=== PATIENT | male | born 1945 | race Caucasian/White ===

== ENCOUNTER 2019-04-28 05:55 | Inpatient (IN) | payer MEDICARE, MEDICAID ==
[~2019-04-28] VITALS: Ht 160 cm; Wt 64.7 kg
--- NOTE | 2019-04-28 05:57 | NUR ---
PT BIB [facility] WITH C/O SOB. ACCORDING TO EMS, PT WAS SATTING AT 79% O2 SAT ON 15L NONREBREATHER AT [facility]. PATIENT GIVEN ALBUTEROL TREATMENT DURING TRANSFER. AAOX4. DIMINSHED BREATHING BILATERALLY. RETRACTIONS UPON BREATHING. CONNECTED TO MONITOR. RT CALLED.
--- NOTE | 2019-04-28 06:02 | NUR ---
LUE AV SHUNT NOTED.
[2019-04-28] MEDS ORDERED: AMLO2.5T4 GT (06:04)
[2019-04-28] MEDS ORDERED: ASCO500T9 PO (06:06)
[2019-04-28] MEDS ORDERED: ATOR20TA GT (06:06)
[2019-04-28] MEDS ORDERED: ARGI1POW13 PO (06:06)
[2019-04-28] MEDS ORDERED: CYCL5TAB GT (06:07)
[2019-04-28] MEDS ORDERED: CARV12.52 GT (06:07)
[2019-04-28] MEDS ORDERED: BISA-79 GT (06:07)
[2019-04-28] MEDS ORDERED: DULO60CA45 GT (06:08)
[2019-04-28] MEDS ORDERED: FURO40TA5 GT (06:08)
[2019-04-28] MEDS ORDERED: IPRA0.2S49 NEB (06:09)
[2019-04-28] MEDS ORDERED: MAGN400T8 PO (06:11)
[2019-04-28] MEDS ORDERED: POLY17PO4 PO (06:11)
[2019-04-28] MEDS ORDERED: PRED5TAB48 PO (06:12)
[2019-04-28] MEDS ORDERED: PREG100C GT (06:13)
--- NOTE | 2019-04-28 06:13 | NUR ---
IS AT BEDSIDE
[2019-04-28] MEDS ORDERED: MIRT15TA PO (06:15)
[2019-04-28] MEDS ORDERED: TAMS-12 GT (06:15)
[2019-04-28] MEDS ORDERED: SPIR25TA6 GT (06:15)
[2019-04-28] MEDS ORDERED: ACET325C7 GT (06:16)
[2019-04-28] MEDS ORDERED: ACET1TAB12 PO (06:16)
[2019-04-28 06:33] LABS: CALCIUM, SERUM 9.6 mg/dL (8.5-10.1); CARBON DIOXIDE 30 mmol/L (21-32); CHLORIDE 99 mmol/L (98-107); CREATININE 2.2 mg/dL (0.6-1.3); GLUCOSE 142 mg/dL (74-106); POTASSIUM 4.8 mmol/L (3.5-5.1); SODIUM SERUM 135 mmol/L (136-145)
[2019-04-28 06:41] LABS: BASOPHILS # (AUTO) 0.1 /CMM (0.0-0.2); BASOPHILS % (AUTO) 0.7 % (0.0-2.0); EOSINOPHILS % (AUTO) 2.9 % (0.0-6.0); HEMATOCRIT 30 % (39-51); HEMOGLOBIN 9.6 g/dL (13.5-17.5); LYMPHOCYTES # (AUTO) 1.1 /CMM (0.8-4.8); LYMPHOCYTES % (AUTO) 7.5 % (20.0-44.0); MEAN CORPUSCULAR HGB CONC 32 g/dl (31.0-36.0); MEAN CORPUSCULAR VOLUME 82 fL (80-96); MONOCYTES # (AUTO) 1.3 /CMM (0.1-1.30); MONOCYTES % (AUTO) 8.5 % (2.0-12.0); NEUTROPHILS # (AUTO) 11.9 /CMM (1.8-8.9); NEUTROPHILS % (AUTO) 80.4 % (43.0-81.0); PLATELET COUNT (AUTO) 237 /CMM (150-450); RED BLOOD CELL COUNT(AUTO) 3.66 MIL/uL (4.5-6.0); WHITE BLOOD COUNT (AUTO) 14.8 K/uL (4.3-11.0)
[2019-04-28 06:44] LABS: UREA NITROGEN, BLOOD 89 mg/dL (7-18)
[2019-04-28 06:47] LABS: B-TYPE NATRIURETIC PEPTIDE 14597 PG/ML (0-125)
--- NOTE | 2019-04-28 08:38 | NUR ---
CALLED PINK[facility] ITS ARMIDA
--- NOTE | 2019-04-28 10:07 | NUR ---
ROOM GIVEN [phone]
--- NOTE | 2019-04-28 10:48 | NUR ---
wheeled patient via gurney accompanied by Charge nurse in no distress, Farhad RN at bedside to assume care.
--- NOTE | 2019-04-28 10:50 | NUR ---
DIATHERMY EQUIPMENT REPAIRER NOTES PATIENT ARRIVED AT UNIT VIA [facility], REPORT RECEIVED FROM FERNANDO AUSTIN. PATIENT AWAKE, A/O X 3, NO ACUTE DISTRESS. PLACED ON O2 AT 5L/MIN. DENIES ANY PAIN OR DISCOMFORT. NOTED WITH EMILEE AV SHUNT, G TUBE IN PLACE. PATIENT UNDER MEDICAL SUPERVISION OF DR ARMIDA GARVIN DNP, AWARE OF PATIENT ARRIVAL. PATIENT ORIENTED TO UNIT, STAFF, PLAN OF CARE, VERBALIZED UNDERSTANDING. WILL CONTINUE TO MONITOR. BED LOCKED AND IN LOW POSITION. BILATERAL UPPER SIDE RAILS UP AND LOCKED. CALL LIGHT WITHIN EASY REACH
--- NOTE | 2019-04-28 11:12 | NUR ---
SPIRITUAL CARE COORDINATOR NOTES PER RN REPORT, PATIENT DNR/DNI. NO POLST FOUND IN CHART. PLACED CALL TO [facility] AND SPOKE WITH NORMAN ARNOLD. VERBALIZED THAT THEY DO NOT HAVE COPY IN CHART. SPOKE WITH PATIENT AND PATIENT VERBALIZED THAT HE WISHES TO BE FULL CODE. PLACED CALL TO JEAN ([phone]), NO ANSWER, LEFT VOICEMAIL. PLACED CALL TO SON, STEPHANE ([phone]) BUT NO ANSWER WELL, LEFT VOICEMAIL. WILL CONTINUE TO MONITOR
--- NOTE | 2019-04-28 11:55 | NUR ---
ELECTRICAL SIGN WIRER HELPER NOTES RECEIVED CALL BACK FROM , JEAN. SPOKE WITH JEAN AND DAUGHTER JA, BOTH VERBALIZED THAT THEY DO NOT WANT INTUBATION BUT THEY WANT RESUSCITATION, CHEST COMPRESSION. VERBALIZED THAT SON, STEPHANE HAS A POA AND WILL COME AND SIGN POLST WHEN HE GETS TO THE UNIT. DR GARVIN PRESENT AT UNIT AND MADE AWARE. WILL CONTINUE TO MONITOR
--- NOTE | 2019-04-28 12:11 | NUR ---
DUMP WORKER NOTES PATIENT SEEN AND EXAMINED BY DR ARMIDA GARVIN. VERIFIED DIET ORDER PATIENT HAS PO DIET AND GT FEEDING AT [facility]. PER DR GARVIN, KEEP PATIENT NPO AT THIS TIME AND TO RESUME GTF ORDERED FROM SNF. ORDER NOTED AND CARRIED OUT. WILL CONTINUE TO MONITOR
[2019-04-28] MEDS ORDERED: ZOLPIDEM TARTRATE 5 MG TABLET PO PRN (12:30)
[2019-04-28] MEDS ORDERED: Z GUARD REMEDY 2 OZ OINT TP PRN (12:30)
[2019-04-28] MEDS ORDERED: ONDANSETRON HCL/PF 4 MG/2 ML VIAL IVP PRN (12:30)
[2019-04-28] MEDS ORDERED: BUMETANIDE INJ 2 MG in IV NS 0.9% 32 ML IV ONE (12:30)
[2019-04-28] MEDS ORDERED: ACETAMINOPHEN 325 MG TABLET PO PRN (12:30)
--- NOTE | 2019-04-28 13:43 | NUR ---
PROFESSIONAL HOUSING CONSULTANT NOTES TROPONIN RESULT OF 0.[address] ARMIDA GARVIN, NO NEW ORDERS AT THIS TIME. WILL CONTINUE TO MONITOR
--- NOTE | 2019-04-28 15:12 | NUR ---
DOPE HOUSE OPERATOR HELPER NOTES JEAN PRESENT AT UNIT. BROUGHT COPY OF POLST FORM INDICATING DNR/DNI. HAD JEAN FILL UP AND SIGN A NEW POLST FORM, ALSO INDICATED DNR/DNI. DR GARVIN MADE AWARE. WILL CONTINUE TO MONITOR
[2019-04-28 17:10] LABS: APPEARANCE,URINE CLEAR (CLEAR); BILIRUBIN,URINE NEGATIVE (NEGATIVE); BLOOD, URINE NEGATIVE Ery/uL (NEGATIVE); COLOR,URINE YELLOW (YELLOW); KETONES,URINE NEGATIVE (NEGATIVE); LEUKOCYTE ESTERASE ,URINE NEGATIVE (NEGATIVE); NITRITE, URINE NEGATIVE (NEGATIVE); PH,URINE 7.5 (5.0-8.0); PROTEIN,URINE NEGATIVE (NEGATIVE); UGLUCOSE NEGATIVE (NEGATIVE); UROBILINOGEN,URINE 0.2 EU/dL (0.2)
[2019-04-28 17:23] LABS: CREATININE, URINE < 13.0 MG/DL (30.0-125.0); URINE SODIUM, RANDOM 70 mmol/l (40-220); URINE TOTAL PROTEIN 23.1 mg/dL (0-11.9)
[2019-04-28] MEDS: GLUCERNA 1.2 1,000 ML BOTTLE GT PRN (17:26)
[2019-04-28] MEDS ORDERED: INSU100V39 SQ (17:28)
[2019-04-28] MEDS ORDERED: PRED5TAB48 GT (17:28)
[2019-04-28] MEDS ORDERED: CRAN3875 GT (17:28)
[2019-04-28] MEDS ORDERED: ZINC1CAP3 GT (17:28)
[2019-04-28] MEDS ORDERED: DICL100G16 TP (17:28)
[2019-04-28] MEDS ORDERED: MELA3TAB63 GT (17:28)
[2019-04-28] MEDS ORDERED: ACET-907 GT ×2 (17:28)
[2019-04-28] MEDS ORDERED: MAGN400O6 GT (17:28)
[2019-04-28] MEDS ORDERED: LIDOCAINE PATCH (17:28)
[2019-04-28] MEDS ORDERED: IPRA0.2S49 IH (17:28)
[2019-04-28] MEDS ORDERED: CYCL30DR OP (17:28)
[2019-04-28] MEDS ORDERED: [UNRECOGNIZED DRUG - OTHER] GT (17:28)
[2019-04-28] MEDS ORDERED: SACC250C GT (17:28)
[2019-04-28] MEDS ORDERED: ASCO500T9 GT (17:28)
[2019-04-28] MEDS ORDERED: INSU100V7 SQ ×2 (17:28→17:33)
[2019-04-28] MEDS ORDERED: ARGI1POW13 GT (17:28)
[2019-04-28] MEDS ORDERED: POLY17PO4 GT (17:28)
[2019-04-28] MEDS ORDERED: CRAN425C6 GT (17:28)
[2019-04-28] MEDS ORDERED: MULT-439 GT (17:28)
[2019-04-28] MEDS ORDERED: BISA10SU11 RC (17:33)
[2019-04-28 17:36] LABS: EOSINOPHIL,URINE None Seen
[2019-04-28] MEDS ORDERED: BISACODYL SUPP (10 MG) 10 MG/SUPP.RECT SUPP.RECT RC PRN (18:30)
--- NOTE | 2019-04-28 18:50 | NUR ---
IC DESIGN MANAGER NOTES PATIENT RESTING INSIDE ROOM. SLEEPING, EASILY AROUSABLE THROUGH VERBAL AND TACTILE STIMULI. HARD OF HEARING. NO ACUTE DISTRESS. DENIES ANY PAIN OR DISCOMOFRT. ON O2 AT 3L/MIN VIA NC. ONGOING GTF AND PATIENT TOLERATING WELL. MAINTAINED ASPIRATION PRECAUTIONS. PATIENT KEPT CLEAN, DRY AND COMFORTABLE. WILL ENDORSE TO INCOMING SHIFT FOR CHASE. BED LOCKED AND IN LOW POSITION. BILATERAL UPPER SIDE RAILS UP AND LOCKED. CALL LIGHT WITHIN EASY REACH
--- NOTE | 2019-04-28 19:00 | NUR ---
utilities operator opening notes Received Pt from morning nurse. Pt is resting in bed comfortably. Pt is alert and oriented x3. Respiration is normal in 3 L NC. No SOB. No nausea or vomiting. Pt denies any pain or discomfort. Tele monitor showed afib at 110. IV sites at RAC# 18 is clean, intact, patent and SL. Pt stated that LUE old AV shunt is not working anymore. Gtube feeding is clean, intact, patent. Pt tolerating well glucerna 1.2 @ 60 ml/hr. Instructed to call. Safety precautions is maintained all the time. Bed at low position, brakes locked, side rails upx3 and call light is within reach. Will continue to monitor.
[2019-04-28 20:00] VITALS: BP 110/69
[2019-04-28] MEDS: ATORVASTATIN 10 MG TABLET PO SCH (21:07)
[2019-04-28] MEDS: ACETAMINOPHEN W/ CODEINE#3 1 EA TABLET GT SCH (21:11)
--- NOTE | 2019-04-28 21:21 | NUR ---
locomotive boilermaker notes Pt's blood sugar is 92. Did not administered Lantus 14 units. Will continue to monitor.
[2019-04-28] MEDS ORDERED: INSULIN GLARGINE, 100 UNIT/ML CARTRIDGE SQ SCH (22:00)
[2019-04-29] VITALS: BP 121/71
[2019-04-29 04:00] VITALS: BP 117/71
--- NOTE | 2019-04-29 04:54 | NUR ---
delicatessen department manager notes Pt is complaining of pain on right leg. Administered Tylenol 325mg/2 tab as ordered for pain per Pt request. Will continue to monitor.
[2019-04-29 05:15] LABS: APPEARANCE,URINE CLEAR (CLEAR); BILIRUBIN,URINE NEGATIVE (NEGATIVE); BLOOD, URINE NEGATIVE Ery/uL (NEGATIVE); COLOR,URINE YELLOW (YELLOW); KETONES,URINE NEGATIVE (NEGATIVE); LEUKOCYTE ESTERASE ,URINE NEGATIVE (NEGATIVE); NITRITE, URINE NEGATIVE (NEGATIVE); PROTEIN,URINE NEGATIVE (NEGATIVE); UGLUCOSE NEGATIVE (NEGATIVE); UROBILINOGEN,URINE 0.2 EU/dL (0.2)
[2019-04-29 05:28] LABS: CREATININE, URINE 18.5 MG/DL (30.0-125.0); URINE TOTAL PROTEIN 23.8 mg/dL (0-11.9)
[2019-04-29 06:11] LABS: EOSINOPHIL,URINE None Seen
[2019-04-29 06:42] LABS: BASOPHILS # (AUTO) 0.1 /CMM (0.0-0.2); BASOPHILS % (AUTO) 0.8 % (0.0-2.0); HEMATOCRIT 29 % (39-51); HEMOGLOBIN 9.1 g/dL (13.5-17.5); LYMPHOCYTES # (AUTO) 1.3 /CMM (0.8-4.8); LYMPHOCYTES % (AUTO) 15.3 % (20.0-44.0); MEAN CORPUSCULAR HGB CONC 32 g/dl (31.0-36.0); MEAN CORPUSCULAR VOLUME 83 fL (80-96); MONOCYTES # (AUTO) 0.9 /CMM (0.1-1.30); MONOCYTES % (AUTO) 11.5 % (2.0-12.0); NEUTROPHILS # (AUTO) 5.4 /CMM (1.8-8.9); NEUTROPHILS % (AUTO) 65.4 % (43.0-81.0); PLATELET COUNT (AUTO) 211 /CMM (150-450); RED BLOOD CELL COUNT(AUTO) 3.45 MIL/uL (4.5-6.0); WHITE BLOOD COUNT (AUTO) 8.2 K/uL (4.3-11.0)
--- NOTE | 2019-04-29 07:00 | NUR ---
driftman notes Pt is resting in bed comfortably. Pt is alert and oriented X3. Respiration is normal in 3 L NC. No SOB. No nausea or vomiting. No S/S of distress noted. VS is stable. Tele monitor showed Afib at 77. Gtube feeding is clean, intact. Pt tolerating well glucerna 1.2 shayna. RAC # 18 is clean, intact, patent and SL. Routine meds were given as ordered. Skin care provided. All needs met and attended. Kept Pt clean, dry and comfortable. Safety precautions is maintained. Bed at low position, brakes locked, side rails upX3 and call light is within reach. Will endorse to morning for CHASE.
[2019-04-29 07:32] LABS: ALANINE AMINOTRANSFERASE 28 U/L (12-78); ALBUMIN 2.3 g/dL (3.4-5.0); ALKALINE PHOSPHATASE 93 U/L (46-116); ASPARTATE AMINOTRANSFERASE 24 U/L (15-37); BILIRUBIN,TOTAL 0.8 mg/dL (0.2-1.0); CALCIUM, SERUM 9.7 mg/dL (8.5-10.1); CARBON DIOXIDE 31 mmol/L (21-32); CHLORIDE 103 mmol/L (98-107); CREATININE 2.3 mg/dL (0.6-1.3); GLUCOSE 131 mg/dL (74-106); MAGNESIUM 2.4 mg/dL (1.8-2.4); PHOSPHORUS 5.3 mg/dL (2.5-4.9); POTASSIUM 4.3 mmol/L (3.5-5.1); SODIUM SERUM 141 mmol/L (136-145); TOTAL PROTEIN, SERUM 7.5 g/dL (6.4-8.2)
[2019-04-29 07:34] LABS: UREA NITROGEN, BLOOD 90 mg/dL (7-18)
[2019-04-29 07:48] LABS: CHOLESTEROL 107 mg/dL (<200); CREATINE KINASE, TOTAL 15 U/L (39-308); HDL CHOLESTEROL 41 mg/dL (40-60); LDL 57 mg/dL (0-99); TRIGLYCERIDES 107 mg/dL (30-150)
[2019-04-29 07:58] VITALS: BP 108/52
--- NOTE | 2019-04-29 08:00 | NUR ---
studio producer AM notes Pt is resting in bed comfortably. Pt is alert and oriented X3. Respiration is normal in 3 L NC. No SOB. No nausea or vomiting. No S/S of distress noted. VS is stable. Tele monitor showed Afib at 77. Gtube feeding is clean, intact. Pt tolerating well glucerna 1.2 shayna at 6o ml/hr. Pt c/o being hungry and was on [facility] soft CCHO,FATOUMATA diet before.Tolerated apple sauce and notified Dr Koenig with orders made and carried out. RAC # 18 is clean, intact, patent and SL. Routine meds were given as ordered. Skin care provided. Kept Pt clean, dry and comfortable. Safety precautions is maintained. Bed at low position, brakes locked, side rails upX3 and call light is within reach.
[2019-04-29 08:05] LABS: IRON, SERUM 17 ug/dl (50-175); TOTAL IRON BINDING CAPACITY 244 ug/dl (250-450)
[2019-04-29] MEDS: CARVEDILOL 12.5 MG TABLET GT SCH ×2 (09:00→17:42)
[2019-04-29] MEDS ORDERED: ACETAMINOPHEN W/ CODEINE#3 1 EA TABLET PO PRN (09:00)
[2019-04-29] MEDS: AMLODIPINE BESYLATE 2.5 MG TABLET GT SCH (09:00)
[2019-04-29] MEDS: DULOXETINE HCL 30 MG CAPSULE.DR GT SCH (09:26)
[2019-04-29] MEDS: PREGABALIN 100 MG CAPSULE GT SCH ×2 (09:26→17:42)
[2019-04-29] MEDS: LIDOCAINE 5% (PATCH) 1 EA PATCH TP SCH (09:26)
[2019-04-29] MEDS: TAMSULOSIN 0.4 MG CAP.SR.24H GT SCH (09:27)
[2019-04-29] MEDS: SPIRONOLACTONE 25 MG TABLET GT SCH (09:27)
[2019-04-29] MEDS: ZINC SULFATE 220 MG CAPSULE GT SCH (09:27)
[2019-04-29] MEDS: ASCORBIC ACID 500 MG TABLET GT SCH (09:27)
[2019-04-29] MEDS: MIRTAZAPINE 15 MG TABLET PO SCH (09:27)
[2019-04-29] MEDS: predniSONE 5 MG TABLET PO SCH (09:27)
[2019-04-29] MEDS: GLUCERNA 1.2 1,000 ML BOTTLE GT PRN (10:20)
[2019-04-29 11:49] LABS: ABG BASE EXCESS 4.1 mmol/L; ABG OXYGEN SATURATION 91.2 % (92.0-98.5); ABG PCO2 43.6 mmHg (35.0-45.0); ABG PH 7.437 (7.350-7.450); ABG PO2 63.3 mmHg (75.0-100.0); AaDO2 84.9 mmHg; COHb 0.8 % (0.5-1.5); MetHb 0.5 % (0.0-1.5); SITE, ABG Left Brachial; VENT MODE, BG 2LNC
[2019-04-29 12:00] VITALS: BP 123/76
[2019-04-29 15:53] VITALS: BP 130/72
[2019-04-29] MEDS ORDERED: DEXTROSE 50%-WATER 50 ML DISP.SYRIN IV PRN (17:30)
[2019-04-29] MEDS: INSULIN REGULAR, HUMAN 100 UNIT/ML 3 ML VIAL SQ PRN ×2 (17:43→21:39)
[2019-04-29] MEDS: BLOOD SUGAR DIAGNOSTIC 1 EACH STRIP IN SCH ×2 (17:44→21:30)
--- NOTE | 2019-04-29 18:03 | NUR ---
PT RESTING IN BED WITH ONGOING GT FEEDING INCREASED TO 65 ML/HR FOR 16 HRS ON 6PM TO 10 AM.PT ATE DINNER TOLERATED WELL WITH ONGOING GT FEEDING WELL. AT THE BEDSIDE.PT DENIES ANY PAIN OR DISTRESS.CALL LIGHT PLACED WITHIN REACH.
--- NOTE | 2019-04-29 18:04 | NUR ---
Patient is alert with hard of hearing.He resides at [facility] [phone]. He requires assistance with mobility and adl's. 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 is very involved and supportive with plan of care. Current dc plan is to return to SNF when discharge. Addendum: 04/29/19 at 1805 by ELSY MCDUFFIE RN Amended: Links added.
--- NOTE | 2019-04-29 19:15 | NUR ---
RN medsurg opening notes Received Pt from morning nurse. Pt is resting in bed comfortably. Pt is alert and oriented X3. Respiration is normal. No SOB. No nausea or vomiting. Pt denies any pain or discomfort at this time. IV sites RAC# 18 is clean, intact and patent. Per Pt's , Pt ate dinner well and had 1X BM. With on going Gtube feeding is clean, intact and patent with Glucerna 1.2 shayna @ 65 ml/hr. Pt tolerated well. Instructed to call. Safety precautions is maintained. Bed at low position, brakes locked, side rails upX3 and call light is within reach. Will continue to monitor.
[2019-04-29 20:00] VITALS: BP 113/62
[2019-04-29] MEDS: ATORVASTATIN 10 MG TABLET PO SCH (21:13)
[2019-04-29] MEDS: ACETAMINOPHEN W/ CODEINE#3 1 EA TABLET GT SCH (21:14)
[2019-04-29] MEDS ORDERED: INSULIN GLARGINE, 100 UNIT/ML CARTRIDGE SQ SCH (22:00)
[2019-04-30] MEDS: GLUCERNA 1.2 1,000 ML BOTTLE GT PRN (04:59)
[2019-04-30] MEDS: BLOOD SUGAR DIAGNOSTIC 1 EACH STRIP IN SCH ×4 (06:32→23:03)
[2019-04-30] MEDS: INSULIN REGULAR, HUMAN 100 UNIT/ML 3 ML VIAL SQ PRN ×4 (06:34→23:02)
--- NOTE | 2019-04-30 07:00 | NUR ---
RN medsurg closing notes Pt is resting in bed comfortably. Pt is alert and oriented X3. Respiration is normal in room air. No SOB. No nausea or vomiting. No S/S of distress noted. VS is stable. Gtube feeding is clean, intact. Pt tolerating well glucerna 1.2 shayna @ 65 ml/hr. RAC # 18 is clean, intact, patent and SL. Routine meds were given as ordered. Skin care provided. All needs met and attended. Kept Pt clean, dry and comfortable. Safety precautions is maintained. Bed at low position, brakes locked, side rails upX3 and call light is within reach. Will endorse to morning for CHASE.
--- NOTE | 2019-04-30 07:20 | NUR ---
MS RN OPENING NOTES RECEIVED PT IN BED, ASLEEP. EASILY AROUSED. A/O X3. MULTILINGUAL BUT CAN UNDERSTAND [place]. PT TOLERATING RA, WITH NO ACUTE RESPIRATORY DISTRESS NOTED. PT DENIES ANY PAIN OR DISCOMFORT AT THIS TIME. PT DENIES ANY CONCERNS OR QUESTIONS WELL AT THIS MOMENT. PIV RAC G18, FLUSHED WITH NS, INTACT AND OPERATIONAL. ON GOING GT FEEDING GLUCERNA 1.2 AT 65ML/HR, INTACT WITH NO RESIDUAL NOTED. PT KEPT COMFORTABLE. HOB ELEVATED. CALL LIGHT KEPT WITHIN REACH. PT'S BED IN LOWEST, LOCKED POSITION WITH SR X3. WILL CONTINUE PLAN OF CARE.
[2019-04-30 08:00] VITALS: BP 119/66
[2019-04-30] MEDS: DULOXETINE HCL 30 MG CAPSULE.DR GT SCH (09:12)
[2019-04-30] MEDS: CARVEDILOL 12.5 MG TABLET GT SCH ×2 (09:12→17:08)
[2019-04-30] MEDS: SPIRONOLACTONE 25 MG TABLET GT SCH (09:12)
[2019-04-30] MEDS: PREGABALIN 100 MG CAPSULE GT SCH ×2 (09:13→17:02)
[2019-04-30] MEDS: TAMSULOSIN 0.4 MG CAP.SR.24H GT SCH (09:13)
[2019-04-30] MEDS: ZINC SULFATE 220 MG CAPSULE GT SCH (09:14)
[2019-04-30] MEDS: AMLODIPINE BESYLATE 2.5 MG TABLET GT SCH (09:14)
[2019-04-30] MEDS: predniSONE 5 MG TABLET PO SCH (09:14)
[2019-04-30] MEDS: ASCORBIC ACID 500 MG TABLET GT SCH (09:14)
[2019-04-30] MEDS: CADEXOMER IODINE 40 GM TUBE TP SCH (09:15)
[2019-04-30] MEDS: LIDOCAINE 5% (PATCH) 1 EA PATCH TP SCH (09:15)
[2019-04-30] MEDS: MIRTAZAPINE 15 MG TABLET PO SCH (09:15)
--- NOTE | 2019-04-30 10:15 | NUR ---
MS RN NOTES PT'S GTF GLUCERNA STOPPED PER ORDER. NO RESIDUAL NOTED. PT ALSO ABLE TO EAT PER [place]. WILL CONTINUE TO MONITOR.
[2019-04-30 11:06] LABS: PTH, INTACT 84 pg/mL (15-65)
--- NOTE | 2019-04-30 12:01 | NUR ---
WOUND CARE CONSULT: PT PRESENTS WITH LOWER EXTREMITY WOUNDS WHICH ARE FOLLOWED BY PODIATRY, PRESENT ON ADMISSION. G TUBE NOTED (CLAMPED) AND BLANCHABLE REDNESS TO SACRAL AREA WHICH IS VERY BONY, PRESENT ON ADMISSION. DEFER TO DPM FOR LOWER EXTREMITIES. RECOMMENDATIONS MADE FOR SKIN PROTECTION. DISCUSSED WITH NURSING STAFF. WILL SEE PRN. CURRENT TERRY SCORE IS 16. Addendum: 04/30/19 at 1203 by MARII SANDERSON WNDNU Amended: Links added.
--- NOTE | 2019-04-30 15:00 | NUR ---
MS RN NOTES SEEN AND EVALUATED BY DR ARMIDA GARVIN. PT 'S STEPHANE SPOKE TO DR GARVIN THROUGH PHONE AND UPDATED REGARDING PLAN OF CARE. PT AWARE WELL. WILL CONTINUE TO MONITOR.
[2019-04-30 16:00] VITALS: BP 113/66
[2019-04-30] MEDS: MYCOPHENOLATE MOFETIL 250 MG CAPSULE PO SCH (17:01)
[2019-04-30] MEDS: APIXABAN 2.5 MG TABLET PO SCH (17:41)
[2019-04-30] MEDS: TACROLIMUS ANHYDROUS 0.5 MG CAPSULE PO SCH (17:42)
--- NOTE | 2019-04-30 18:37 | NUR ---
MS RN CLOSING NOTES PT IN BED, INTERMITTENTLY DOZING OFF. EASILY AROUSED. A/O X3. MULTILINGUAL BUT CAN UNDERSTAND [place]. PT TOLERATING RA, WITH NO ACUTE RESPIRATORY DISTRESS NOTED. PT DENIES ANY PAIN OR DISCOMFORT AT THIS TIME. PT DENIES ANY CONCERNS OR QUESTIONS WELL AT THIS MOMENT. PIV RAC G18, FLUSHED WITH NS, INTACT AND OPERATIONAL. ON GOING GT FEEDING GLUCERNA 1.2 AT 65ML/HR, INTACT WITH NO RESIDUAL NOTED. ALL NEEDS AND CARE ATTENDED. PT KEPT COMFORTABLE. HOB ELEVATED. CALL LIGHT KEPT WITHIN REACH. PT'S BED IN LOWEST, LOCKED POSITION WITH SR X3. WILL ENDORSE TO INCOMING NIGHT NURSE FOR CHASE.
--- NOTE | 2019-04-30 19:10 | NUR ---
MS RN NOTES RECEIVED PT IN BED AWAKE AND ABLE TO MAKE NEEDS KNOWN. PT A/O X3 AND MULTILINGUAL BUT UNDERSTANDS [place]. RESPIRATIONS EVEN AND UNLABORED WITH NO S/S OF ACUTE DISTRESS OR SOB NOTED. PT ON 2L VIA NC. PT DENIES PAIN AT THIS TIME. PT WITH IV RAC G18 PATENT AND INTACT AND SL. PT NOTED WITH GT FEEDING GLUCERNA 1.2 AT 65ML/HR, INTACT WITH NO RESIDUAL NOTED. PT'S HOB ELEVATED. SAFETY MEASURES IN PLACE WITH BED IN LOWEST LOCKED POSITION WITH SIDE RAILS UP X2. CALL LIGHT WITHIN REACH. WILL CONTINUE TO MONITOR.
[2019-04-30 20:27] VITALS: BP 125/62
[2019-04-30] MEDS: ACETAMINOPHEN W/ CODEINE#3 1 EA TABLET GT SCH (22:59)
[2019-04-30] MEDS: ATORVASTATIN 10 MG TABLET PO SCH (22:59)
[2019-04-30] MEDS: INSULIN GLARGINE, 100 UNIT/ML CARTRIDGE SQ SCH (23:02)
[2019-05-01 07:22] LABS: BASOPHILS # (AUTO) 0.1 /CMM (0.0-0.2); BASOPHILS % (AUTO) 0.8 % (0.0-2.0); EOSINOPHILS % (AUTO) 4.3 % (0.0-6.0); HEMATOCRIT 27 % (39-51); HEMOGLOBIN 8.8 g/dL (13.5-17.5); LYMPHOCYTES # (AUTO) 1.5 /CMM (0.8-4.8); LYMPHOCYTES % (AUTO) 20.1 % (20.0-44.0); MEAN CORPUSCULAR HGB CONC 32 g/dl (31.0-36.0); MEAN CORPUSCULAR VOLUME 83 fL (80-96); MONOCYTES # (AUTO) 0.9 /CMM (0.1-1.30); MONOCYTES % (AUTO) 11.7 % (2.0-12.0); NEUTROPHILS # (AUTO) 4.8 /CMM (1.8-8.9); NEUTROPHILS % (AUTO) 63.1 % (43.0-81.0); PLATELET COUNT (AUTO) 199 /CMM (150-450); RED BLOOD CELL COUNT(AUTO) 3.31 MIL/uL (4.5-6.0); WHITE BLOOD COUNT (AUTO) 7.6 K/uL (4.3-11.0)
--- NOTE | 2019-05-01 07:36 | NUR ---
MS RN NOTES PT IN BED AWAKE AND ABLE TO MAKE NEEDS KNOWN. PT A/O X3 AND MULTILINGUAL BUT UNDERSTANDS [place]. RESPIRATIONS EVEN AND UNLABORED WITH NO S/S OF ACUTE DISTRESS OR SOB NOTED THROUGHOUT SHIFT. PT KEPT CLEAN, DRY, AND COMFORTABLE. PT ON 2L VIA NC. PT DENIES PAIN AT THIS TIME. PT WITH IV RAC G18 PATENT AND INTACT AND SL. PT NOTED WITH GT FEEDING GLUCERNA 1.2 AT 65ML/HR, INTACT WITH NO RESIDUAL NOTED. PT'S HOB ELEVATED. SAFETY MEASURES IN PLACE WITH BED IN LOWEST LOCKED POSITION WITH SIDE RAILS UP X2. CALL LIGHT WITHIN REACH. WILL ENDORSE TO ONCOMING NURSE FOR CHASE.
[2019-05-01 07:38] LABS: CALCIUM, SERUM 9.6 mg/dL (8.5-10.1); CARBON DIOXIDE 31 mmol/L (21-32); CHLORIDE 101 mmol/L (98-107); CREATININE 2.4 mg/dL (0.6-1.3); GLUCOSE 204 mg/dL (74-106); MAGNESIUM 2.6 mg/dL (1.8-2.4); PHOSPHORUS 4.5 mg/dL (2.5-4.9); SODIUM SERUM 138 mmol/L (136-145)
[2019-05-01 07:44] LABS: UREA NITROGEN, BLOOD 96 mg/dL (7-18)
--- NOTE | 2019-05-01 07:50 | NUR ---
RN MS NOTES PT IN BED, AWAKE, ALERT AND ORIENTED, EATING BREAKFAST, DENIES PAIN, NOT IN DISTRESS, CALL LIGHT WITHIN REACH, KEPT WARM AND COMFORTABLE IN BED.
[2019-05-01] MEDS: BLOOD SUGAR DIAGNOSTIC 1 EACH STRIP IN SCH ×4 (07:51→21:10)
[2019-05-01] MEDS: INSULIN REGULAR, HUMAN 100 UNIT/ML 3 ML VIAL SQ PRN ×4 (07:51→21:19)
[2019-05-01 08:00] VITALS: BP 161/70
[2019-05-01] MEDS: TACROLIMUS ANHYDROUS 0.5 MG CAPSULE PO SCH ×2 (09:30→21:24)
[2019-05-01] MEDS: AMLODIPINE BESYLATE 2.5 MG TABLET GT SCH (09:31)
[2019-05-01] MEDS: TAMSULOSIN 0.4 MG CAP.SR.24H GT SCH (09:31)
[2019-05-01] MEDS: MYCOPHENOLATE MOFETIL 250 MG CAPSULE PO SCH ×2 (09:31→21:24)
[2019-05-01] MEDS: SPIRONOLACTONE 25 MG TABLET GT SCH (09:31)
[2019-05-01] MEDS: PREGABALIN 100 MG CAPSULE GT SCH ×2 (09:31→17:34)
[2019-05-01] MEDS: ASCORBIC ACID 500 MG TABLET GT SCH (09:31)
[2019-05-01] MEDS: MIRTAZAPINE 15 MG TABLET PO SCH (09:31)
[2019-05-01] MEDS: DULOXETINE HCL 30 MG CAPSULE.DR GT SCH (09:31)
[2019-05-01] MEDS: ZINC SULFATE 220 MG CAPSULE GT SCH (09:31)
[2019-05-01] MEDS: predniSONE 5 MG TABLET PO SCH (09:31)
[2019-05-01] MEDS: APIXABAN 2.5 MG TABLET PO SCH ×2 (09:32→17:36)
[2019-05-01] MEDS: CARVEDILOL 12.5 MG TABLET GT SCH ×2 (09:33→17:34)
[2019-05-01] MEDS: LIDOCAINE 5% (PATCH) 1 EA PATCH TP SCH (09:34)
[2019-05-01] MEDS: CADEXOMER IODINE 40 GM TUBE TP SCH (09:44)
--- NOTE | 2019-05-01 12:30 | NUR ---
RN MS NOTES PT AWAKE, ALERT AND ORIENTED, DENIES PAIN, NOT IN DISTRESS, SEEN BY DR. GAMBOA, PLAN OF CARE DISCUSSED WITH PT, VERBALIZED UNDERSTANDING.
[2019-05-01 16:00] VITALS: BP 121/52
--- NOTE | 2019-05-01 18:01 | NUR ---
RN MS NOTES PT IN BED, AWAKE, ALERT AND ORIENTED, EATING DINNER, NO COMPLAINT OF PAIN, NOT IN DISTRESS, CALL LIGHT WITHIN REACH, TOLERATING DINNER WELL, PM MEDS GIVEN ORDERED, ALL NEEDS ATTENDED.
--- NOTE | 2019-05-01 19:30 | NUR ---
MS RN OPENING NOTES: RECEIVED PATIENT IN BED AWAKE AND STABLE. VERBALLY RESPONSIVE, AND ABLE TO MAKE NEEDS KNOWN. A/O X3. ON 2L OF NC. RESPIRATIONS EVEN AND UNLABORED WITH NO S/S OF ACUTE DISTRESS OR SOB NOTED. PT DENIES PAIN AT THIS TIME. IV ACCESS LOCATED AT FA #18G PATENT AND INTACT AND SL. PT NOTED WITH GT FEEDING GLUCERNA 1.2 AT 65ML/HR, INTACT WITH NO RESIDUAL NOTED. PT'S HOB ELEVATED. SAFETY MEASURES ARE IN PLACE WITH BED IN LOWEST LOCKED POSITION WITH SIDE RAILS UP X2. CALL LIGHT WITHIN REACH. WILL CONTINUE TO MONITOR PATIENT ACCORDINGLY.
[2019-05-01 20:00] VITALS: BP 106/65
[2019-05-01] MEDS: INSULIN GLARGINE, 100 UNIT/ML CARTRIDGE SQ SCH (21:18)
[2019-05-01] MEDS: ATORVASTATIN 10 MG TABLET PO SCH (21:24)
[2019-05-01] MEDS: ACETAMINOPHEN W/ CODEINE#3 1 EA TABLET GT SCH (21:25)
[2019-05-02] MEDS: GLUCERNA 1.2 1,000 ML BOTTLE GT PRN (05:40)
[2019-05-02] MEDS: INSULIN REGULAR, HUMAN 100 UNIT/ML 3 ML VIAL SQ PRN ×3 (06:09→22:20)
[2019-05-02 06:31] LABS: BASOPHILS # (AUTO) 0.1 /CMM (0.0-0.2); BASOPHILS % (AUTO) 0.8 % (0.0-2.0); EOSINOPHILS % (AUTO) 5.1 % (0.0-6.0); HEMATOCRIT 30 % (39-51); HEMOGLOBIN 9.4 g/dL (13.5-17.5); LYMPHOCYTES # (AUTO) 1.6 /CMM (0.8-4.8); MEAN CORPUSCULAR HGB CONC 31 g/dl (31.0-36.0); MEAN CORPUSCULAR VOLUME 82 fL (80-96); MONOCYTES # (AUTO) 0.8 /CMM (0.1-1.30); MONOCYTES % (AUTO) 10.6 % (2.0-12.0); NEUTROPHILS # (AUTO) 5.1 /CMM (1.8-8.9); NEUTROPHILS % (AUTO) 63.5 % (43.0-81.0); PLATELET COUNT (AUTO) 230 /CMM (150-450); RED BLOOD CELL COUNT(AUTO) 3.67 MIL/uL (4.5-6.0)
[2019-05-02 06:38] LABS: CALCIUM, SERUM 9.4 mg/dL (8.5-10.1); CARBON DIOXIDE 33 mmol/L (21-32); CHLORIDE 100 mmol/L (98-107); CREATININE 2.4 mg/dL (0.6-1.3); GLUCOSE 182 mg/dL (74-106); MAGNESIUM 2.5 mg/dL (1.8-2.4); PHOSPHORUS 4.1 mg/dL (2.5-4.9); POTASSIUM 5.2 mmol/L (3.5-5.1); SODIUM SERUM 137 mmol/L (136-145)
[2019-05-02 06:42] LABS: UREA NITROGEN, BLOOD 97 mg/dL (7-18)
--- NOTE | 2019-05-02 06:53 | NUR ---
MS RN CLOSING NOTES: PATIENT AWAKE IN BED, STABLE AND VERBALLY RESPONSIVE. A/O3. VERBALLY RESPONSIVE AND BALE TO MAKE NEEDS KNOWN. ON 2L OF OXYGEN VIA NC. NO SOB, NO S/S OF ACUTE DISTRESS. BREATHING EVEN AND UNLABORED. NO COMPLAINS OF PAIN OR DISCOMFORT AT THIS TIME. PATIENT SLEPT WELL TRHOUGH THE NIGHT. KEPT WARM AND COMFORTABLE THROUGHOUT THE SHIFT. DAILY WEIGHT: 144.2 LB. IV ACCESS LOCATED AT RIGHT FA #22G PATENT, INTACT AND FLUSHING WELL. ON GOING GT FEEDING GLUCERNA 1.2 AT 65ML/HR, INTACT WITH NO RESIDUAL NOTED. BLOOD SUGAR CHECK DONE AT 0600, PB=987. 3 UNITS OF INSULIN WAS GIVEN. ALL DUE MEDICATIONS GIVEN ORDERED. TOLERATED WELL. ALL NEEDS AND CARE ATTENDED. HOB ELEVATED. SAFETY MEASURES KEPT IN PLACE. BED IN LOW LOCKED POSITION WITH SIDERAILS UP X2. CALL LIGHT KEPT WITHIN REACH. WILL ENDORSE TO DAY SHIFT NURSE FOR CHASE.
[2019-05-02 08:00] VITALS: BP 131/73
--- NOTE | 2019-05-02 08:00 | NUR ---
MS RN OPENING NOTES PATIENT AWAKE IN BED. POSITIONED IN SEMI FOWLERS. ON NC 2L O2. NO SIGNS OF RESPIRATORY DISTRESS. PATIENT IS HARD OF HEARING AND SIGHT. CALL LIGHT IN PATIENTS HANDS. FEEDING TUBE RESIDUAL 10CC. FEEDING TUBE IN PLACE,CHECKED BY AUSCULTATION. VITAL SIGNS - BP: 131/73 HR: 96 RR: 20 TEMP: 97.4 SPO2: 96.
[2019-05-02] MEDS: BLOOD SUGAR DIAGNOSTIC 1 EACH STRIP IN SCH ×4 (08:15→22:19)
[2019-05-02] MEDS: ASCORBIC ACID 500 MG TABLET GT SCH (09:29)
[2019-05-02] MEDS: TAMSULOSIN 0.4 MG CAP.SR.24H GT SCH (09:29)
[2019-05-02] MEDS: PREGABALIN 100 MG CAPSULE GT SCH ×2 (09:29→16:57)
[2019-05-02] MEDS: ZINC SULFATE 220 MG CAPSULE GT SCH (09:29)
[2019-05-02] MEDS: MIRTAZAPINE 15 MG TABLET PO SCH (09:29)
[2019-05-02] MEDS: AMLODIPINE BESYLATE 2.5 MG TABLET GT SCH (09:29)
[2019-05-02] MEDS: DULOXETINE HCL 30 MG CAPSULE.DR GT SCH (09:30)
[2019-05-02] MEDS: MYCOPHENOLATE MOFETIL 250 MG CAPSULE PO SCH ×2 (09:30→21:51)
[2019-05-02] MEDS: CARVEDILOL 12.5 MG TABLET GT SCH ×2 (09:30→16:58)
[2019-05-02] MEDS: APIXABAN 2.5 MG TABLET PO SCH ×2 (09:36→16:59)
[2019-05-02] MEDS: TACROLIMUS ANHYDROUS 0.5 MG CAPSULE PO SCH ×2 (09:36→21:51)
[2019-05-02] MEDS: LIDOCAINE 5% (PATCH) 1 EA PATCH TP SCH (09:36)
[2019-05-02] MEDS: predniSONE 5 MG TABLET PO SCH (09:36)
[2019-05-02] MEDS: CADEXOMER IODINE 40 GM TUBE TP SCH (09:38)
[2019-05-02] MEDS ORDERED: BUMETANIDE INJ 0.25 MG/ML VIAL IV ONE (12:00)
--- NOTE | 2019-05-02 14:14 | NUR ---
MS RN NOTES PER WAFER PRODUCTION LEAD WORKER RECOMMENDATION DIET CHANGED TO GLUCERNA 1.2 AT 55ML/HR FROM 6PM TO 8AM . PATIENT TO HAVE BREAKFAST, LUNCH AND DINNER. ORDERS NOTED AND CARRIED OUT. MD AWARE, ORDERS TO FOLLOW WAFER PRODUCTION LEAD WORKER RECOMMENDATION
[2019-05-02] MEDS ORDERED: GLUCERNA 1.2 1,000 ML BOTTLE GT PRN (14:30)
[2019-05-02 16:00] VITALS: BP 124/74
--- NOTE | 2019-05-02 18:32 | NUR ---
MS RN CLOSING NOTES PATIENT AWAKE IN BED. POSITIONED IN SEMI FOWLERS. ON NC 2L O2. NO SIGNS OF RESPIRATORY DISTRESS AND NO COMPLAINTS OF PAIN. FAMILY PRESENT AT BEDSIDE. CALL LIGHT WITHIN PATIENT'S REACH. GTUBE FEEDING W/ GLUCERNA 1.2 RUNNING AT 55 CC/HR. WILL ENDORSE TO STOCKROOM INVENTORY CLERK NURSE TO FOLLOW PLAN OF CARE. .
--- NOTE | 2019-05-02 19:30 | NUR ---
MS RN NOTES RECEIVED PATIENT IN BED, AWAKE ALERT AND ORIENTED X 3. BREATHING EVEN AND UNLABORED RESPIRATIONS. PATIENT DENIES ACUTE RESPIRATORY DISTRESS, NO PAIN. PATIENT IV IS ON R FA #22G SL, CLEAN DRY AND INTACT. SHOWS NO SIGNS OF INFILTRATION, NO REDNESS. SAFETY PRECAUTIONS IN PLACE. BED IN LOWEST POSITION, LOCKED, AND CALL LIGHT KEPT WITHIN REACH. WILL CONTINUE TO MONITOR.
[2019-05-02 19:54] VITALS: BP 115/70
[2019-05-02 20:00] VITALS: BP 115/70
[2019-05-02] MEDS: ACETAMINOPHEN W/ CODEINE#3 1 EA TABLET GT SCH (21:53)
[2019-05-02] MEDS: ATORVASTATIN 10 MG TABLET PO SCH (21:54)
[2019-05-02] MEDS: INSULIN GLARGINE, 100 UNIT/ML CARTRIDGE SQ SCH (22:21)
[2019-05-03] MEDS: BLOOD SUGAR DIAGNOSTIC 1 EACH STRIP IN SCH ×2 (06:14→12:02)
--- NOTE | 2019-05-03 06:14 | NUR ---
MS RN NOTES BLOOD SUGAR 91, NO COVERAGE NEEDED AT THIS TIME. ON GTUBE FEEDING 55CC/HR. WILL CONTINUE TO MONITOR.
[2019-05-03 06:20] LABS: BASOPHILS # (AUTO) 0.1 /CMM (0.0-0.2); BASOPHILS % (AUTO) 0.8 % (0.0-2.0); EOSINOPHILS % (AUTO) 5.1 % (0.0-6.0); HEMATOCRIT 29 % (39-51); HEMOGLOBIN 9.3 g/dL (13.5-17.5); LYMPHOCYTES # (AUTO) 1.5 /CMM (0.8-4.8); LYMPHOCYTES % (AUTO) 19.5 % (20.0-44.0); MEAN CORPUSCULAR HGB CONC 32 g/dl (31.0-36.0); MEAN CORPUSCULAR VOLUME 83 fL (80-96); MONOCYTES # (AUTO) 0.9 /CMM (0.1-1.30); MONOCYTES % (AUTO) 11.7 % (2.0-12.0); NEUTROPHILS # (AUTO) 4.8 /CMM (1.8-8.9); NEUTROPHILS % (AUTO) 62.9 % (43.0-81.0); PLATELET COUNT (AUTO) 231 /CMM (150-450); RED BLOOD CELL COUNT(AUTO) 3.52 MIL/uL (4.5-6.0); WHITE BLOOD COUNT (AUTO) 7.6 K/uL (4.3-11.0)
[2019-05-03 06:34] LABS: CALCIUM, SERUM 9.7 mg/dL (8.5-10.1); CARBON DIOXIDE 35 mmol/L (21-32); CHLORIDE 103 mmol/L (98-107); CREATININE 2.2 mg/dL (0.6-1.3); GLUCOSE 100 mg/dL (74-106); MAGNESIUM 2.4 mg/dL (1.8-2.4); PHOSPHORUS 4.1 mg/dL (2.5-4.9); POTASSIUM 5.4 mmol/L (3.5-5.1); SODIUM SERUM 141 mmol/L (136-145)
[2019-05-03 06:35] LABS: UREA NITROGEN, BLOOD 92 mg/dL (7-18)
--- NOTE | 2019-05-03 06:45 | NUR ---
MS RN NOTES PATIENT IS IN BED ASLEEP, ALERT AND ORIENTED X 3. BREATHING EVEN AND UNLABORED, ON ROOM AIR. IV ON R FA #22G SALINE LOCKED, CLEAN, DRY AND INTACT. SHOWS NO SIGNS OF INFILTRATION, NO REDNESS. GTUBE FEEDING ON 55CC/HR. ATTENDED TO PATIENT NEEDS. SAFETY PRECAUTIONS IN PLACE. BED IN LOWEST POSITION, LOCKED, AND KEPT CALL LIGHT WITHIN REACH. WILL ENDORSE TO MORNING NURSE.
--- NOTE | 2019-05-03 07:30 | NUR ---
MS RN OPENING NOTES PATIENT AWAKE IN BED. POSITIONED IN SEMI FOWLERS. ON NC 2L O2. NO SIGNS OF RESPIRATORY DISTRESS OR COMPLAINTS OF PAIN. GTUBE FEEDING GLUCERNA 10.2 RUNNING AT 55 CC/HR. WILL TURN OFF FEEDING AT 8AM PER MD ORDERS. CALL LIGHT IN PATIENTS HANDS. WILL CONTINUE TO MONITOR PATIENT.
[2019-05-03 08:00] VITALS: BP_SYST 112; BP_SYST 128; BP_DIAS 71; BP_DIAS 90
[2019-05-03] MEDS: LIDOCAINE 5% (PATCH) 1 EA PATCH TP SCH (09:17)
[2019-05-03] MEDS: predniSONE 5 MG TABLET PO SCH (09:18)
[2019-05-03] MEDS: DULOXETINE HCL 30 MG CAPSULE.DR GT SCH (09:18)
[2019-05-03] MEDS: CARVEDILOL 12.5 MG TABLET GT SCH (09:18)
[2019-05-03] MEDS: MIRTAZAPINE 15 MG TABLET PO SCH (09:18)
[2019-05-03] MEDS: PREGABALIN 100 MG CAPSULE GT SCH (09:18)
[2019-05-03] MEDS: ASCORBIC ACID 500 MG TABLET GT SCH (09:18)
[2019-05-03] MEDS: TAMSULOSIN 0.4 MG CAP.SR.24H GT SCH (09:18)
[2019-05-03] MEDS: ZINC SULFATE 220 MG CAPSULE GT SCH (09:18)
[2019-05-03 09:19] VITALS: BP 112/71
[2019-05-03] MEDS: AMLODIPINE BESYLATE 2.5 MG TABLET GT SCH (09:19)
[2019-05-03] MEDS: MYCOPHENOLATE MOFETIL 250 MG CAPSULE PO SCH (09:19)
[2019-05-03] MEDS: TACROLIMUS ANHYDROUS 0.5 MG CAPSULE PO SCH (09:20)
[2019-05-03] MEDS: APIXABAN 2.5 MG TABLET PO SCH (09:22)
[2019-05-03] MEDS: CADEXOMER IODINE 40 GM TUBE TP SCH (10:39)
[2019-05-03] MEDS ORDERED: BUME1TAB9 PO (11:22)
[2019-05-03] MEDS ORDERED: TACR0.5C PO (11:22)
[2019-05-03] MEDS ORDERED: MYCO250C PO (11:22)
[2019-05-03 14:07] LABS: *SPE A/G RATIO 0.6 (0.7-1.7); *SPE ALBUMIN 2.5 g/dL (2.9-4.4); *SPE ALPHA-1-GLOBULIN 0.3 g/dL (0.0-0.4); *SPE BETA GLOBULIN 1.1 g/dL (0.7-1.3); *SPE GLOBULIN, TOTAL 4.4 g/dL (2.2-3.9); *SPE M-SPIKE Not Observed g/dL (Not Observed); *SPEGAMMA GLOBULIN 1.9 g/dL (0.4-1.8)
--- NOTE | 2019-05-03 15:22 | NUR ---
DATA SUPPORT ANALYST NOTES PATIENT DISCHARGED TO [facility]. PATIENT A&O X3. ON 2L NC. MED RECONCILIATION DONE. ENDORSED TO RN AT SNF, [facility], ABOUT PATIENT'S PLAN OF CARE AND VERBALIZED UNDERSTANDING. PATIENT SHOWS NO S/S OF ACUTE RESPIRATORY DISTRESS AND HAS NO COMPLAINTS OF PAIN. VITAL SIGHS WNL. , JEAN, PRESENT DURING DISCHARGE. PATIENT SIGNED DISCHARGE PAPERWORK. DISCHARGE INSTRUCTIONS GIVEN TO BOTH PATIENT AND . ALL BELONGINGS ARE WITH PATIENT. PATIENT PICKED UP BY AMBULANCE.
== END 2019-05-03 15:15 | DRG 698 ==
LOC: ER 05:58 → TELE 10:38 → MED 04-29 13:18
PROVIDERS: ADMIT Nurse Practitioner Acute Care; ATTEND Nurse Practitioner Acute Care
DX: T86.11 Kidney transplant rejection (principal); J96.21 Acute and chronic respiratory failure with hypoxia; I21.4 Non-ST elevation (NSTEMI) myocardial infarction; I50.33 Acute on chronic diastolic (congestive) heart failure; N17.0 Acute kidney failure with tubular necrosis; E87.1 Hypo-osmolality and hyponatremia; D68.59 Other primary thrombophilia; I11.0 Hypertensive heart disease with heart failure; I27.21 Secondary pulmonary arterial hypertension; Y83.9 Surgical procedure, unspecified as the cause of abnormal reaction of the patient, or of later complication, without mention of misadventure at the time of the procedure; D72.829 Elevated white blood cell count, unspecified; D64.9 Anemia, unspecified; I48.0 Paroxysmal atrial fibrillation; K21.9 Gastro-esophageal reflux disease without esophagitis; E78.5 Hyperlipidemia, unspecified; Z66 Do not resuscitate; Z93.1 Gastrostomy status; I70.25 Atherosclerosis of native arteries of other extremities with ulceration; L98.499 Non-pressure chronic ulcer of skin of other sites with unspecified severity; I73.9 Peripheral vascular disease, unspecified
CPT/HCPCS: 36415; 36600; 71045-TC; 73600-TC; 80048-TC; 80053-TC; 80061-TC; 80197; 81000-TC; 82550-TC; 82570-TC; 82803-TC; 82962-TC; 83540-TC; 83735-TC; 83880; 83970; 84100-TC; 84155; 84155-TC; 84165; 84300-TC; 84443-TC; 84484-TC; 85025-TC; 87081-TC; 93307-TC; 93926-TC; A4216; G0378; J1815; J3490; J7030; J7507; J7512; J7517